=== PATIENT | female | born 1960 | race African-American/Black ===

== ENCOUNTER 2025-02-24 13:07 | Emergency (ER) | payer MEDICARE, MEDICAID ==
[~2025-02-24] VITALS: Ht 157.5 cm; Wt 159.0 kg
[2025-02-24 13:11] VITALS: TEMP 36.9; O2SAT 98
[2025-02-24 14:20] LABS: BASOPHILS % 0.5 % (0.0-2.0); EOSINOPHILS % 1.8 % (0.0-5.0); HEMATOCRIT. 42.6 % (36.0-48.0); HEMOGLOBIN. 13.3 g/dL (12.0-16.0); LYMPHOCYTES % 18.3 % (20.0-50.0); MEAN CORPUSCULAR HEMOGLOBIN 27.2 pg (28.0-32.0); MEAN CORPUSCULAR HGB CONC 31.1 g/dL (31.0-37.0); MEAN CORPUSCULAR VOLUME 87.4 fL (81.0-99.0); MEAN PLATELET VOLUME 9.1 fl (7.4-10.4); MONOCYTES % 10.1 % (2.0-8.0); NEUTROPHILS % 69.3 % (40.0-76.0); PLATELET 166 x1000/uL (130-400); RED BLOOD CELL COUNT 4.87 mill/uL (4.2-5.4); RED CELL DISTRIBUTION WIDTH 16.4 % (11.6-14.6); WHITE BLOOD COUNT 4.9 x1000/uL (4.5-11.0)
[2025-02-24 14:29] LABS: CHLORIDE 101 mEq/L (98-107); POTASSIUM 3.8 mEq/L (3.5-5.1); SODIUM 141 mEq/L (136-145)
[2025-02-24 14:30] LABS: CARBON DIOXIDE 33 mEq/L (21-32)
[2025-02-24] MEDS: HYDROCODONE/ACETAMINOPHEN 5/325MG TABLET PO ONE (14:33)
[2025-02-24 14:35] LABS: CREATININE 0.8 mg/dL (0.6-1.0); GLUCOSE 101 mg/dL (70-105); UREA NITROGEN BLOOD 12 mg/dL (9-23)
[2025-02-24 14:40] LABS: INR 1.1; PROTHROMBIN TIME 11.6 sec (9.6-11.0)
[2025-02-24 15:39] VITALS: BP 161/80; PULSE 75; RESP 14; O2SAT 97
[2025-02-24] MEDS ORDERED: SULF1TAB48 MT (16:02)
[2025-02-24] MEDS ORDERED: CEPH500C2 MT (16:02)
== END 2025-02-24 22:48 | disposition home or self-care (01) ==
LOC: ER 13:07
DX: N61.0 Mastitis without abscess (principal); I10 Essential (primary) hypertension; Z98.890 Other specified postprocedural states; Z90.11 Acquired absence of right breast and nipple
CPT/HCPCS: 36415; 76641; 80048; 83605; 84145; 85025; 99284

== ENCOUNTER 2025-08-20 11:57 | Emergency (ER) | payer MEDICARE, MEDICAID ==
[~2025-08-20] VITALS: Ht 165.1 cm; Wt 100.0 kg
[~2025-08-20 11:57] MED LIST: FLUO20TA29 PO; FURO40TA5 PO; METO-396 PO; OMEP20CA14 MT
[2025-08-20 12:08] VITALS: TEMP 36.8; O2SAT 99
[2025-08-20 13:43] VITALS: BP 157/89; PULSE 81; RESP 14; O2SAT 98
== END 2025-08-20 13:46 | disposition home or self-care (01) ==
LOC: ER 12:44
DX: E11.9 Type 2 diabetes mellitus without complications (principal); I11.0 Hypertensive heart disease with heart failure; I50.9 Heart failure, unspecified; Z79.899 Other long term (current) drug therapy; Z90.710 Acquired absence of both cervix and uterus; Z88.5 Allergy status to narcotic agent
CPT/HCPCS: 99283